=== PATIENT | male | born 1985 | race Caucasian/White ===

== ENCOUNTER 2020-06-07 12:30 | Emergency (ER) | payer MEDICARE ==
[~2020-06-07] VITALS: Ht 188 cm; Wt 86.2 kg
[2020-06-07] MEDS ORDERED: [UNRECOGNIZED DRUG - OTHER] BC (13:01)
--- OUTSIDE RECORDS SUMMARY | 2020-06-07 17:18 | XMS ---
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 - 2 Visits in 30 Days CARE PROVIDERS There are no care providers on record at this time. Ken has no Care Guidelines for this patient. [place] VISIT COUNT (12 MO.) [address] TOTAL 4 NOTE: Visits indicate total known visits. ED/C VISIT TRACKING (12 MO.) [facility] COMPLAINT: - OBDOMINAL PAIN,CLEARENCE FOR DETOX 05/22/2020 22:35 [facility] TYPE: Emergency DIAGNOSES: - Toxic encephalopathy - ABD PAIN 05/04/2020 21:43 [facility] [place] TYPE: Emergency DIAGNOSES: - Generalized abdominal pain - ABD PAIN - Other diseases of spleen 05/04/2020 07:51 [facility] [place] TYPE: Emergency DIAGNOSES: - Generalized abdominal pain - Cyst of spleen - Other diseases of spleen - DRUG USE INPATIENT VISIT TRACKING (12 MO.) No inpatient visits to display in this time frame [email or web address]
== END 2020-06-07 16:41 | disposition home or self-care (01) ==
LOC: ED 12:30
DX: K59.00 Constipation, unspecified (principal); F15.90 Other stimulant use, unspecified, uncomplicated; D73.4 Cyst of spleen; F17.200 Nicotine dependence, unspecified, uncomplicated
CPT/HCPCS: 74176; 80053; 81001; 83605; 83690; 85025; 96374; 99284-25; J1885; J7030

== ENCOUNTER 2023-07-14 10:01 | Emergency (ER) | payer MEDICARE, OTHER ==
[~2023-07-14] VITALS: Ht 188 cm; Wt 82.9 kg
[~2023-07-14 10:01] MED LIST: [UNRECOGNIZED DRUG - OTHER] BC
--- OUTSIDE RECORDS SUMMARY | 2023-07-14 10:09 | XMS ---
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 E.[place] VISIT COUNT (12 MO.) 5 [address] [facility] TOTAL 7 NOTE: Visits indicate total known visits. ED/UCC VISIT TRACKING (12 MO.) 07/14/2023 10:02 [facility] [place] TYPE: Emergency COMPLAINT: - ABD PAIN, N/V/D 06/25/2023 14:26 [facility] [place] TYPE: Emergency DIAGNOSES: - Epigastric pain - ULCER FLARE UP 12/30/2022 15:09 [facility] [place] TYPE: Emergency DIAGNOSES: - Radiculopathy, cervical region - BODY NUMBNESS 12/28/2022 11:20 [facility] [place] TYPE: Emergency DIAGNOSES: - Cervical root disorders, not elsewhere classified - NECK PAIN 09/23/2022 06:[facility] [place] [facility] TYPE: Emergency COMPLAINT: - Methodone treatment DIAGNOSES: - Encounter for issue of repeat prescription - Med Refill - [facility]one treatment 09/17/2022 12:37 [facility] [place] TYPE: Emergency DIAGNOSES: - Diarrhea, unspecified - Epigastric pain - ABD PAIN 08/01/2022 12:59 [facility] [place] TYPE: Emergency DIAGNOSES: - Constipation, unspecified - Epigastric pain - abd pain INPATIENT VISIT TRACKING (12 MO.) No inpatient visits to display in this time frame [email or web address]
[2023-07-14] MEDS ORDERED: PREDNISONE10 MG PO (10:26)
[2023-07-14] MEDS ORDERED: LIDOCAINE HCL100 ML MT (10:27)
[2023-07-14] MEDS ORDERED: GABAPENTIN300 MG PO (10:27)
[2023-07-14 11:10] LABS: BASOPHILS 0.2 % (0-2); EOSINOPHILS 0.6 % (0-6); HEMATOCRIT 53.8 % (35.0-50.0); HEMOGLOBIN 18.1 g/dL (12.0-18.0); LYMPHOCYTES 19.5 % (24-44); MCH 29.4 (27-36); MCHC 33.6 g/dl (30-36); MCV 87.6 fl (81-99); MONOCYTES 9.9 % (0-12); NEUTROPHILS 69.8 % (39-80); PLATELET COUNT 318 K/uL (140-440); RBC 6.14 M/ul (4.3-5.7); RDW 14.7 (10.5-15.0)
[2023-07-14 11:14] LABS: ALBUMIN 3.9 g/dL (3.4-5.0); ALBUMIN/GLOBULIN RATIO 1.15 (1.1-2.4); ANION GAP 12.1 (7-21); BILIRUBIN, TOTAL 0.7 ng/dL (0.2-1.0); BUN/CREATININE RATIO 13.97 (6.0-28.6); CALCIUM 8.5 mg/dL (8.5-10.1); CREATININE, SERUM 1.36 mg/dL (0.70-1.30); POTASSIUM 3.1 mmol/L (3.5-5.1); PROTEIN, TOTAL 7.3 g/dL (6.4-8.2)
[2023-07-14 14:09] VITALS: BP 136/99
== END 2023-07-14 14:10 | disposition home or self-care (01) ==
LOC: ED 10:01
PROVIDERS: Emergency Medicine
DX: K29.70 Gastritis, unspecified, without bleeding (principal); Z87.19 Personal history of other diseases of the digestive system; F17.200 Nicotine dependence, unspecified, uncomplicated; Z79.52 Long term (current) use of systemic steroids; Z79.899 Other long term (current) drug therapy
CPT/HCPCS: 36415; 76705; 80053; 83690; 85025; 96374; 99284-25; J2405